=== PATIENT | female | born 1965 | race Caucasian/White ===

== ENCOUNTER 2023-07-20 09:39 | Outpatient (OUT) | payer MEDICARE, SELFPAY ==
--- NOTE | 2023-07-20 | XR_ITS ---
The [address] [address] Patient Name: OG SEVILLA MRN: [id number] date: 1965 Sex: F Assigned Patient Location: [facility] Current Patient Location: [facility] Accession/Order Number: [id number] Exam Date: 07/20/2023 09:46 Report Date: 07/20/2023 13:11 At the request of: YANETH BERTRAND Procedure: XR foot RT min 3V PROCEDURE: XR foot RT min 3V DATE: 07/20/2023 8:46 AM [employer] COLLECTIONS ANALYST COMPARISONS: Right ankle radiographs done approximately the same time as these right foot radiographs. CLINICAL INDICATION: RIGHT FOOT PAIN FINDINGS: There is no evidence of fractures or other acute osseous abnormalities. Mild first metatarsal phalangeal degenerative change. Nhdtd-jf-uicddmiu size spur off the posterior inferior os calcis. Prominent deformity of the tibiotalar joint space, as noted on previous ankle radiographs. XR/XR foot RT min 3V IMPRESSION: Right foot radiographs show no evidence of acute abnormalities. Electronically authenticated by: EDMOND MCGEE Date: 07/20/2023 13:11
--- NOTE | 2023-07-20 | XR_ITS ---
[place] [id number] Patient Name: OG SEVILLA MRN: [id number] date: 1965 Sex: F Assigned Patient Location: [facility] Current Patient Location: [facility] Accession/Order Number: [id number] Exam Date: 07/20/2023 09:46 Report Date: 07/20/2023 12:25 At the request of: YANETH BERTRAND Procedure: XR ankle RT min 3V PROCEDURE: XR ankle RT min 3V COMPARISON: 07/17/2021 HISTORY: RIGHT ANKLE PAIN FINDINGS: BONES:No acute fracture or dislocation. Severe degenerative changes of the tibiotalar joint with [id number]-fr-losy articulation and marked bony remodeling. Contour deformity of the distal tibia and fibula, remote healed fracture. Moderate enthesopathic spurring plantar calcaneus SOFT TISSUES:Negative. No visible soft tissue swelling. EFFUSION:None visible. OTHER: Negative. XR/XR ankle RT min 3V IMPRESSION: Severe tibiotalar osteoarthritis Electronically authenticated by: JADYN BLOOM Date: 07/20/2023 12:25
== END 2023-07-20 09:40 | disposition home or self-care (01) ==
LOC: RAD 09:40
PROVIDERS: Visit Provider Podiatrist Foot & Ankle Surgery
DX: M25.571 Pain in right ankle and joints of right foot (principal); M79.671 Pain in right foot; M19.071 Primary osteoarthritis, right ankle and foot
CPT/HCPCS: 73610; 73630